=== PATIENT | female | born 1965 | race African-American/Black ===

== ENCOUNTER 2025-01-31 06:41 | Emergency (ER) | payer MEDICAID ==
[~2025-01-31] VITALS: Ht 160 cm; Wt 68.0 kg
[2025-01-31 06:49] VITALS: O2SAT 100
[2025-01-31] MEDS: IOHEXOL-350 100 ML BOTTLE ONE (07:15)
[2025-01-31 07:22] LABS: HEMATOCRIT. 41.3 % (36.0-48.0); HEMOGLOBIN. 14.2 g/dL (12.0-16.0); MEAN CORPUSCULAR HEMOGLOBIN 34.1 pg (28.0-32.0); MEAN CORPUSCULAR HGB CONC 34.4 g/dL (31.0-37.0); MEAN CORPUSCULAR VOLUME 98.9 fL (81.0-99.0); MEAN PLATELET VOLUME 8.8 fl (7.4-10.4); PLATELET 262 x1000/uL (130-400); RED BLOOD CELL COUNT 4.18 mill/uL (4.2-5.4); RED CELL DISTRIBUTION WIDTH 13.2 % (11.6-14.6); WHITE BLOOD COUNT 7.8 x1000/uL (4.5-11.0)
[2025-01-31 07:23] LABS: DIFFERENTIAL COMMENT 1
[2025-01-31 07:46] LABS: CHLORIDE 102 mEq/L (98-107); POTASSIUM 3.8 mEq/L (3.5-5.1); SODIUM 137 mEq/L (136-145)
[2025-01-31 07:47] LABS: CALCIUM 10.4 mg/dL (8.7-10.4); CARBON DIOXIDE 25 mEq/L (21-32)
[2025-01-31 07:52] LABS: CREATININE 0.8 mg/dL (0.6-1.0); ETHANOL BLOOD < 10 mg/dL (<10); GLUCOSE 114 mg/dL (70-105); UREA NITROGEN BLOOD 13 mg/dL (9-23)
[2025-01-31 08:16] LABS: GIANT PLATELETS FEW; PLATELET ESTIMATE NORMAL
[2025-01-31 08:22] LABS: TROPONIN I HIGH SENSITIVITY < 4 ng/L (3.0-34)
[2025-01-31 08:25] LABS: PROTHROMBIN TIME 11.2 sec (9.6-11.0)
[2025-01-31] MEDS ORDERED: CLONIDINE 0.1MG TABLET PO PRN (10:30)
[2025-01-31] MEDS ORDERED: ONDANSETRON HCL 4MG/2ML INJ IV PRN (10:30)
[2025-01-31] MEDS ORDERED: DOCUSATE SODIUM 100MG CAPSULE PO PRN (10:30)
[2025-01-31] MEDS ORDERED: ACETAMINOPHEN 325MG TABLET PO PRN ×2 (10:30)
[2025-01-31] MEDS ORDERED: IPRATROPIUM/ALBUTEROL 0.5-3(2.5)MG/3ML NEB HHN PRN (10:30)
[2025-01-31] MEDS ORDERED: MAGNESIUM/ALUMINUM HYDROXIDE/SIMETHICONE 30ML UDC PO PRN (10:30)
[2025-01-31] MEDS ORDERED: ENOXAPARIN 40MG/0.4ML SYR SUBCUT SCH (10:30)
[2025-01-31] MEDS ORDERED: GUAIFENESIN 200MG/10ML SUGAR FREE UDC PO PRN (10:30)
[2025-01-31] MEDS: KETOROLAC 30MG/ML VIAL IV ONE (10:58)
[2025-01-31] MEDS ORDERED: KETOROLAC 15MG/ML VIAL IV SCH (12:00)
[2025-01-31 12:25] VITALS: BP 164/104; PULSE 123; RESP 20; TEMP 37; O2SAT 100
[2025-02-01] MEDS ORDERED: PANTOPRAZOLE 40MG DR TABLET PO SCH (07:50)
[2025-02-01] MEDS ORDERED: LOSARTAN 50 MG TABLET PO SCH (09:00)
== END 2025-01-31 12:40 | disposition short-term general hospital (02) ==
LOC: ER 06:41 → EDBEDREQ 06:54 → EDBEDREQTM 08:56 → EDBEDREQ 08:56 → CANBEDREQ 10:33 → ER 12:40
DX: G82.50 Quadriplegia, unspecified (principal); I10 Essential (primary) hypertension; Z20.822 Contact with and (suspected) exposure to COVID-19
CPT/HCPCS: 80048; 80320; 85025; 85610; 84484; 36415; 71045; 70496; 70498; 70450; 72141; 72146; 72148; 93005; 96374; 99291; 87426; Q9967; J1885; Z7610; G0480